=== PATIENT | female | born 1995 | race Caucasian/White ===

== ENCOUNTER 2024-12-23 10:09 | Outpatient (CLI) | payer BC, MEDICAID, SELFPAY ==
--- NOTE | ~2024-12-23 | MR_ITS ---
EXAMINATION: MR knee LT wo con DATE: 12/23/2024 10:49 INDICATION: Left knee medial collateral ligament injury TECHNIQUE: Magnetic resonance imaging (MRI) of the left knee was performed without intravenous contrast. Sequences included coronal PD-weighted FSE, coronal PD-weighted FS FSE, sagittal T2-weighted FSE, sagittal PD-weighted FS FSE and axial PD weighted fat saturated FSE. COMPARISON: None. FINDINGS: Medial compartment: Medial meniscus is normal. Articular cartilage is normal. Lateral compartment: Lateral meniscus is normal. Articular cartilage is normal. Patellofemoral compartment: Deep chondral ulceration with mild subarticular cystlike change at the medial margin of the medial trochlea. Additional partial-thickness chondral fissuring without degenerative subchondral changes at the trochlear groove. Cartilage at the patella lateral trochlea is normal. Ligaments and tendons: Anterior and posterior cruciate ligaments are normal. The fibular collateral ligament complex is normal. Mild increased signal of the proximal medial collateral ligament with prominent surrounding soft tissue edema consistent with moderate grade sprain. The extensor mechanism is normal. The visualized medial and lateral hamstring tendons as well as the iliotibial band are normal. Fluid: Small left knee joint effusion at the suprapatellar pouch. No loose osteochondral bodies identified. Osseous/other: Small region of mild marrow edema along the lateral rim of the posterior weightbearing lateral femoral condyle without evident overlying chondromalacia or associated fracture line suggesting possible bone contusion such as in the setting of a valgus injury of the knee in flexion as could occur in the setting of a medial collateral ligament sprain. No fracture or pathologic marrow replacing process. IMPRESSION: 1. Findings suggestive of a valgus injury to the left knee including moderate grade sprain/partial tear of the proximal medial collateral ligament and likely associated bone contusion at the lateral margin of the posterior weightbearing lateral femoral condyle. 2. 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 3. Small left knee joint effusion. Reviewed, dictated and finalized at location A. IMPRESSION: 1. Findings suggestive of a valgus injury to the left knee including moderate g rade sprain/partial tear of the proximal medial collateral ligament and likely associated bone contusion at the lateral margin of the posterior weightbearing lateral femoral condyle. 2. Mild patellofemoral osteoarthritis with small regions of high-grade chondrom alacia at the medial trochlea. 3. Small left knee joint effusion.
--- OUTSIDE RECORDS SUMMARY | 2024-12-23 10:23 | XMS_ITS | Clinical Summary ---
Author Organization [facility] Address [address] [place] [address] Care Team Providers Care Voice Instructor Name Role Phone Terry Arroyo MD Primary Care Provider [phone] Allergies Active Allergy Reactions Criticality Noted Date Comments Diphenhydramine Hives,Other (see comment) High 04/30/2022 Hives on his wrist hives Medroxyprogesterone Dizziness,Hives Medium 05/08/2017 Medications levothyroxine (SYNTHROID) 100 MCG tablet Take 1 tablet (100 mcg total) by mouth daily. 11/14/2024 Active omeprazole (PRILOSEC) 20 MG capsule Take 1 capsule (20 mg total) by mouth daily. 05/10/2024 Active sertraline (ZOLOFT) 100 MG tablet Take 1 tablet (100 mg total) by mouth daily. 09/16/2024 Active Active Problems No known active problems Encounters Date Type Department Care Team Description 12/19/2024 Telephone [facility] [place] [address] [place] [address] Finn Alonzo MD Orders 12/16/2024 MyChart Message Enc [facility] [address] [place] [address] Finn Alonzo MD MRI 12/14/2024 2:20 PM CDT Office Visit [facility] [address] [place] [address] Finn Alonzo MD New Patient (Left knee ) 12/14/2024 Travel 12/12/2024 Telephone [facility] Orthopedic & Sports Medicine - [place] [address] [place] [address] Finn Alonzo MD Appointment Request 11/01/2024 Get Together Message Enc [facility] [place] [address] [employer], [facility] Provider Name Change from Last 3 Months Family History Medical History Relation Comments Cancer Maternal Grandfather Heart Disease Paternal Grandfather Relation Status Comments Maternal Grandfather Alive Paternal Grandfather Alive Social History Tobacco Use Types Packs/Day Years Used Date Smoking Tobacco: Former Cigarettes 0.3 1 Q uit: 03/23/2016 Smokeless Tobacco: Never Alcohol Use Standard Drinks/Week Comments Yes 0 (1 standard drink = 0.6 oz pur e alcohol) Socially PHQ-2 Answer Date Recorded Patient Health Questionnaire-2 Score 0 12/14/2024 Comments Unknown Sex and Gender Information Value Date Recorded Sex Assigned at Not on file Legal Sex Female 7:25 PM CDT Gender Identity Not on file Sexual Orientation Not on file Last Filed Vital Signs Vital Sign Reading Time Taken Comments Blood Pressure 107/74 12/14/2024 2:43 PM CDT Pulse 75 12/14/2024 2:43 PM CDT Temperature 36.9 C (98.4 F) 12/14/2024 2:21 PM CDT Respiratory Rate - - Oxygen Saturation - - Inhaled Oxygen Concentration - - Weight 111.1 kg (245 lb) 12/14/2024 2:21 PM CDT Height 165.1 cm (5' 5) 12/14/2024 2:21 PM CDT Body Mass Index 40.77 12/14/2024 2:21 PM CDT Plan of Treatment Upcoming Encounters Date Type Department Care Team (Late st Contact Info) Description 07/14/2025 3:00 PM CDT Office Visit [facility] Multispecialty Care - [address] [place] [address] Terry Arroyo MD [address] [facility] [address] [place] [address] Health Maintenance Due Date Last Done Comments Annual Physical 06/27/1999 HPV Vaccines (1 - 3-dose SCDM series) 06/27/2023 COVID-19 Vaccine ( season) 2024 07/19/2020, 06/18/2020 Influenza Adult (#1) 2024 Cervical Cancer Screening Pap Smear (Age 21 to 29) Every 3 Years 10/31/2025 10/31/2022, 08/17/2020 Cervical Cancer Screening 10/31/2025 DTaP, Tdap and Td Vaccines (8 - Td or Tdap) 11/23/2033 11/24/2023, 05/20/2019, 05/20/2019, Additional history exists Hepatitis B Vaccines Completed 02/13/1997, 1996, 1996 Hepatitis C Completed 08/25/2022 PHQ-2 (Physician [place]) Completed 12/14/2024 Meningococcal B Vaccine Aged Out No l onger eligible based on patient's age to complete this topic Meningococcal Vaccine Aged Out No bryce carlie eligible based on patient's age to complete this topic Pneumococcal Vaccine: Pediatrics (0 to 5 Years) and At-Risk Patients (6 to 49 Years) Aged Out No longer eligible based on patient's age to complete this topic RSV Immunizations Under 20 Months Aged Out No longer eligible based on patient's age to complete this topic Insurance [facility] MEDICAID Care Teams Voice Instructor Relationship Specialty Start Date End Date Terry Arroyo MD [address] [facility] [address] [place] [id number] PCP - General INTERNAL MEDICINE 12/14/24
--- OUTSIDE RECORDS SUMMARY | 2024-12-23 10:23 | XMS_ITS | Encounter Summary ---
Author Organization [facility] Address [address] [facility] [place] [place] [address] Phone Care Team Providers Care Social Welfare Research Worker Name Role Phone Kathryn Adhikari APRN, LYNDSAY Primary Care P rovider Dami Yuen MD Unavailable Reason for Visit * Reason Comments Medication Refill Encounter Details Date Type Department Care Team (Late st Contact Info) Description 02/19/2021 Refill [facility]s & [facility]necology [facility] [address] [place] [address] Xu Ramos MD [address] [place] [address] Medication Refill Social History Tobacco Use Types Packs/Day Years Used Date Smoking Tobacco: Former Smokeless Tobacco: Never Alcohol Use Standard Drinks/Week Comments Yes 1 (1 standard drink = 0.6 oz pure alcohol) socially, maybe two drinks one time a week PHQ-2 Answer Date Recorded Total Score - Questions 1-9 0 04/0 04/2020 Education Answer Date Recorded What is the highest level of school you have completed or the highest degree you have received? Some college, no degree 09/13/2020 Sexually Active Control Partners Comments Yes Condom Male Comments No Sex and Gender Information Value Date Recorded Sex Assigned at Not on file Legal Sex Female 9:11 AM COMMUNICATIONS WRITER Gender Identity Not on file Sexual Orientation Not on file COVID-19 Exposure Response Date Recorded In the last month, have you been in contact with someone who was confirmed or suspected to have Coronavirus / COVID-19? No / Unsure 02/07/2021 3:23 PM COMMUNICATIONS WRITER documented as of this encounter Miscellaneous Notes * Telephone Encounter - Debbie Gupta RN - 02/20/2021 11:15 AM CST Medication failed the protocol, provider to review and approve the medication order if appropriate. Requested Prescriptions Pending Prescriptions Disp Refills Vienva 0.1-20 MG-MCG Tablet [Pharmacy Med Name: VIENVA 0.1MG/0.02MG TABS 28S] 28 Tablet 5 Sig: TAKE 1 TABLET BY MOUTH DAILY Not Delegated - Oral Contraceptives Protocol Failed - 02/19/2021 7:04 PM Failed - This refill cannot be delegated Passed - No positive test in the past 12 months or most recent test was negative Passed - Visit with relevant provider in past 12 months or upcoming 90 days Recent Visits Date Type Provider Dept 02/07/21 Office Visit Kathryn Adhikari APRN, LYNDSAY [facility] 09/14/20 Office Visit Kathryn Adhikari APRN, AWNING FINISHER [facility] [place] [facility] 08/17/20 Office Visit Xu Ramos MD [facility] Windshield Wiper Repairer [place] 06/22/20 Office Visit Kathryn Adhikari APRN, AWNING FINISHER [facility] [place] [facility] Showing recent visits within past 365 days and meeting all other requirements Future Appointments No visits were found meeting these conditions. Showing future appointments within next 90 days and meeting all other requirements Passed - No active on record Passed - Up to date with pap smear Health Maintenance UNICATIONS WRITER documented in this encounter Plan of Treatment Upcoming Encounters Date Type Department Care Team (Late st Contact Info) Description 03/31/2025 2:15 PM COMMUNICATIONS WRITER Office Visit [facility] - Endocrinology - [place] [address] [place] [address] Dami Yuen MD [address] [address] documented as of this encounter Visit Diagnoses Not on filedocumented in this encounter Additional Health Concerns Infection Onset Date Last Indicated Resolved Time COVID - 19 02/21/2021 03/25/2021 04/14/2021 12:1 6 AM COMMUNICATIONS WRITER Assessment Noted Time PHQ-9 Depression Total Score: 0 06/23/19 21 8:00 AM CDT documented as of this encounter Care Teams Social Welfare Research Worker Relationship Specialty Start Date End Date Kathryn Adhikari APRN, AWNING FINISHER [address] [place] [address] PCP - General Advanced Practice Nurse 01/01/18 Dami Yuen MD [address] [place] [address] [place] [address] Consulting Physician Endocrinology 12/15/24 documented as of this encounter
--- OUTSIDE RECORDS SUMMARY | 2024-12-23 10:23 | XMS_ITS | Encounter Summary ---
Author Organization [facility] Address [facility] [place] [address] Care Team Providers Care Auto Tester Name Role Phone Shashi Peng MD Primary Care Provider [phone] Terry Arroyo MD Primary Care Provider [phone] Encounter Details Date Type Department Care Team (Late Contact Info) Description 11/01/2024 Visual Threat Message Qra[facility] [place] [address] [facility] Provider Name Change Social History Tobacco Use Types Packs/Day Years Used Date Smoking Tobacco: Never Assessed Comments Unknown Sex and Gender Information Value Date Recorded Sex Assigned at Not on file Legal Sex Female 7:25 PM CDT Gender Identity Not on file Sexual Orientation Not on file documented as of this encounter Plan of Treatment Upcoming Encounters Date Type Department Care Team (Late Contact Info) Description 07/14/2025 3:00 PM CDT Office Visit [facility] Multispecialty Care - [address] [place] [address] Terry Arroyo MD [address] [place] [address] [address] [place], [place] [id number] documented as of this encounter Visit Diagnoses Not on filedocumented in this encounter Care Teams Auto Tester Relationship Specialty Start Date End Date Shashi Peng MD [address] [place] [address] DR JESSICA [address] [place] [address] PCP - General 11/06/15 12/13/24 Terry Arroyo MD [address] [facility] [address] [place] [address] PCP - General INTERNAL MEDICINE 12/14/24 documented as of this encounter
--- OUTSIDE RECORDS SUMMARY | 2024-12-23 10:23 | XMS_ITS | Encounter Summary ---
Author Organization [facility] Address [address] [facility] [place] [address] Phone Care Team Providers Care Land Acquisition Analyst Name Role Phone Kathryn Adhikari APRN, CNP Primary Care P rovider Dami Yuen MD Unavailable Reason for Visit * Reason Comments Medication Refill Encounter Details Date Type Department Care Team (Late st Contact Info) Description 09/30/2021 Refill [facility] - Primary Care - [place] [address] [place] [address] Kathryn Adhikari APRN, CNP [address] [place] [address] Medication Refill Social History Tobacco Use Types [...] on file Legal Sex Female 9:11 AM SLUDGE FILTRATION OPERATOR Gender Identity Not on file Sexual Orientation Not on file documented as of this encounter Miscellaneous Notes * Telephone Encounter - Lana Bravo RN - 09/30/2021 12:29 PM CDT Duplicate-ordered today. documented in this encounter Plan of Treatment Upcoming Encounters Date Type Department Care Team (Late st Contact Info) Description 03/31/2025 2:15 PM SLUDGE FILTRATION OPERATOR Office Visit [facility] - Endocrinology - [place] [address] [place] [address] Dami Yuen MD [address] [address] documented as of this encounter Visit Diagnoses Diagnosis Class 2 severe obesity due to excess calories with serious comorbidity and body mass index (BMI) of 37.0 to 37.9 in adult documented in this encounter Additional Health Concerns Assessment Noted Time PHQ-9 Depression Total Score: 0 06/23/19 21 8:00 AM CDT documented as of this encounter Care Teams Land Acquisition Analyst Relationship Specialty Start Date End Date Kathryn Adhikari APRN, CNP [address] [place] [address] PCP - General Advanced Practice Nurse 01/01/18 Dami Yuen MD [address] [address] Consulting Physician Endocrinology 12/15/24 documented as of this encounter
--- OUTSIDE RECORDS SUMMARY | 2024-12-23 10:24 | XMS_ITS | Encounter Summary ---
Author Organization [facility] Address [address] [facility] [place] [address] Phone Care Team Providers Care Typewriter Assembler Name Role Phone Kathryn Adhikari APRN, CNP Primary Care P rovider Dami Yuen MD Unavailable Reason for Visit * Reason Comments Medication Refill Encounter Details Date Type Department Care Team (Late st Contact Info) Description 03/04/2023 Refill [facility] - Primary Care - [place] [address] [place] [address] Kathryn Adhikari APRN, CNP [address] [place] [address] Medication Refill Social History Tobacco [...] on file Legal Sex Female 9:11 AM MANAGER SOFTWARE Gender Identity Not on file Sexual Orientation Not on file documented as of this encounter Miscellaneous Notes * Telephone Encounter - Comfort Sandoval RN - 03/05/2023 9:18 AM MANAGER SOFTWARE Medication failed the protocol, provider to review and approve the medication order if appropriate. Requested Prescriptions Pending Prescriptions Disp Refills Mounjaro 10 MG/0.5ML Solution Pen-injector [Pharmacy Med Name: Mounjaro 10 MG/0.5ML Subcutaneous Solution Pen-injector] 4 mL 0 Sig: INJECT 10 MG SUBCUTANEOUSLY ONCE A WEEK GLP-1 Agonists Protocol Failed - 03/04/2023 7:41 PM Failed - HgA1C result on record in past 6 months No results found for: HGBA1C Passed - Lipid panel result on file in past 12 months LDL Date Value Ref Range Status 08/25/2022 80 5 - 130 mg/dL Final HDL CHOLESTEROL Date Value Ref Range Status 08/25/2022 54.4 >40 mg/dL Final CHOLESTEROL Date Value Ref Range Status 08/25/2022 194 <=200 mg/dL Final TRIGLYCERIDES Date Value Ref Range Status 08/25/2022 298 (H) <150 mg/dL Final VLDL Date Value Ref Range Status 08/25/2022 60 (H) 5 - 55 mg/dL Final CHOL/HDL RATIO Date Value Ref Range Status 08/25/2022 3.6 0.0 - 4.4 Final NON-HDL CHOLESTEROL Date Value Ref Range Status 08/25/2022 139.6 (H) <130 mg/dL Final Passed - Visit with relevant provider in past 6 months or upcoming 90 days Recent Visits Date Type Provider Dept 03/02/23 Office Visit Kathryn Adhikari APRN, C.O.D. AUDIT CLERK [facility] 01/09/23 Office Visit Brenden Morley PAC [facility] 10/13/22 Office Visit Kathryn Adhikari APRN, C.O.D. AUDIT CLERK [facility] Showing recent visits within past 182 days and meeting all other requirements Future Appointments No visits were found meeting these conditions. Showing future appointments within next 90 days and meeting all other requirements Passed - GFR on record in past 6 months GFR, EST. NONAFRICAN Date Value Ref Range Status 03/02/2023 >60 >=60 Final GER SOFTWARE documented in this encounter Plan of Treatment Upcoming Encounters Date Type Department Care Team (Late st Contact Info) Description 03/31/2025 2:15 PM MANAGER SOFTWARE [facility] - End[facility]in[facility] [address] [place] [address] Dami Yuen MD [address] [address] documented as of this encounter Visit Diagnoses Diagnosis PCO (polycystic ovaries) Polycystic ovaries Class 3 severe obesity due to excess calories with serious comorbidity and body mass index (BMI) of 40.0 to 44.9 in adult Endometriosis Endometriosis, site unspecified documented in this encounter Additional Health Concerns Assessment Noted Time PHQ-9 Depression Total Score: 0 06/23/19 21 8:00 AM CDT documented as of this encounter Care Teams Typewriter Assembler Relationship Specialty Start Date End Date Kathryn Adhikari APRN, C.O.D. AUDIT CLERK [address] [place] [address] PCP - General Advanced Practice Nurse 01/01/18 Dami Yuen MD [address] [address] Consulting Physician Endocrinology 12/15/24 documented as of this encounter
--- OUTSIDE RECORDS SUMMARY | 2024-12-23 10:24 | XMS_ITS | Encounter Summary ---
Author Organization [facility] Address [address] [place] [address] Phone Care Team Providers Care Production Planner Name Role Phone Kathryn Adhikari APRN, LYNDSAY Primary Care P rovider Dami Yuen MD Unavailable Reason for Visit * Reason Comments Medication Refill Encounter Details Date Type Department Care Team (Late st Contact Info) Description 01/02/2023 Refill [facility] - Primary Care - [place] [address] [place] [address] Brenden Morley PAC [address] [place] [address] Medication Refill Social History Tobacco Use Types [...] on file Legal Sex Female 9:11 AM APPLICATION INTEGRATION ARCHITECT Gender Identity Not on file Sexual Orientation Not on file documented as of this encounter Miscellaneous Notes * Telephone Encounter - Jaime, Comfort L, RN - 01/02/2023 1:43 PM CDT Medication failed the protocol, provider to review and approve the medication order if appropriate. Requested Prescriptions Pending Prescriptions Disp Refills Mounjaro 7.5 MG/0.5ML Solution Pen-injector [Pharmacy Med Name: Mounjaro 7.5 MG/0.5ML Subcutaneous Solution Pen-injector] 4 mL 0 Sig: INJECT 1 SYRINGE SUBCUTANEOUSLY ONCE A WEEK GLP-1 Agonists Protocol Failed - 01/02/2023 1:41 PM Failed - HgA1C result on record [...] days Recent Visits Date Type Provider Dept 10/13/22 Office Visit Kathryn Adhikari APRN, CLINICAL STUDIES SPECIALIST [facility] 08/15/22 Office Visit Kathryn Adhikari APRN, CLINICAL STUDIES SPECIALIST [facility] Showing recent visits within past 182 days and meeting all other requirements Future Appointments No visits were found meeting these conditions. Showing future appointments within next 90 days and meeting all other requirements Passed - GFR on record in past 6 months GFR, EST. NONAFRICAN Date Value Ref Range Status 08/25/2022 >60 >=60 Final documented in this encounter Plan of Treatment Upcoming Encounters Date Type Department Care Team (Late st Contact Info) Description 03/31/2025 2:15 PM APPLICATION INTEGRATION ARCHITECT Office Visit [facility] - Endocrinology - [place] [address] [place] [address] Dami Yuen MD [address] [phone] documented as of this encounter Visit Diagnoses [...] documented as of this encounter Care Teams Production Planner Relationship Specialty Start Date End Date Kathryn Adhikari APRN, CLINICAL STUDIES SPECIALIST [address] [place] [address] PCP - General Advanced Practice Nurse 01/01/18 Dami Yuen MD [address] [address] Consulting Physician Endocrinology 12/15/24 documented as of this encounter
--- OUTSIDE RECORDS SUMMARY | 2024-12-23 10:24 | XMS_ITS | Clinical Summary ---
Author Organization [facility] Building B Address [address] [place] [address] Care Team Providers Care Printing Table Hand Name Role Phone Kathryn Adhikari NP Primary Care Provide r Allergies Active Allergy Reactions Criticality Noted Date Comments Diphenhydramine Hives Medium 05/01/2022 Hives on his wrist Medroxyprogesterone Hives Medium 05/08/2017 Medications omeprazole (PriLOSEC) 20 mg capsule Take 1 capsule (20 mg total) by mouth daily 3 Active ondansetron (ZOFRAN) 4 mg tablet Take 1 tablet (4 mg total) by mouth every 8 (eight) hours as needed As needed 3 Active levothyroxine (SYNTHROID) 100 mcg recon soln 0 Active tirzepatide (MOUNJARO) 15 mg/0.5 mL pen injector 4 Active letrozole (FEMARA) 2.5 mg tablet Take one tablet PO D3-7 of menstrual cycle. 5 tablet 6 4 Active sertraline (ZOLOFT) 100 mg tablet Take 1 tablet (100 mg total) by mouth daily 5 Active Active Problems Problem Noted Date Diagnosed Date Well woman exam 04/11/2021 Overview (04/11/2021): Lab: Pap:h/o abnl told secondary to bv Due in July 2021 With pcp Jaimie: Colonoscopy: BMD: Gardasil:05/23 Assessment & Plan (04/11/2021 5:27 PM RING SPINNER): Due for pap in July PCOS (polycystic ovarian syndrome) 04/11/2021 Assessment & Plan (07/19/2021 9:40 AM CDT): She is happy with these pills for now. Will continue on To increase fiber to see if it helps with cramping via helping with the constipation. rto 12m for wwe or prn To continue on the spironolactone Assessment & Plan (04/11/2021 5:30 PM RING SPINNER): Will change to ocp with higher estrogen to increase the amount of SHBG. Use reviewed. Hopefully it will regulate the periods too and help with the pain. RTO 3m for f/u She will follow with her pcp for weight loss which is the first treatment for PCOS Hirsutism 04/11/2021 Assessment & Plan (07/11/2021 4:08 PM CDT): To continue on spironolactone. Assessment & Plan (04/11/2021 5:28 PM RING SPINNER): Will start on spironolactone. Use reviewed. Discussed it may take up to 6m before she notices any difference Adjustment disorder with mixed anxiety and depre ssed mood 08/07/2017 Amenorrhea 07/28/2016 Encounters Date Type Department Care Team Description 11/28/2024 2:40 PM CDT Ancillary Procedure [facility] Imaging at [address] [address] Injury of nail bed of right thumb, initial encounter 11/28/2024 2:30 PM CDT Office Visit [facility] Convenient Care at [address] [address] Melissa Hidalgo NP Injury of nail bed of right thumb, initial encounter (Primary Dx) 11/28/2024 Results Follow-Up [facility] Convenient Care at [address] [address] Melissa Hidalgo, MAX XR Finger Thumb Right Minimum 2 Views from Last 3 Months Surgical History Surgery Date Site/Laterality Comments BUNIONECTOMY Medical History Medical History Date Comments Polycystic ovary syndrome Thyroid disease Family History Medical History Relation Name Comments Esophageal cancer Maternal Grandfather Scleroderma Maternal Grandmother Thyroid disease Mother Colon cancer Paternal Grandfather Heart disease Paternal Grandfather Breast cancer Neg Hx Cancer Neg Hx 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 [facility]- breast. 04/08/21cmt Ovarian cancer Neg Hx Uterine cancer Neg Hx Relation Name Status Comments Maternal Grandfather Maternal Grandmother Mother Paternal Grandfather Social History Tobacco Use Types Packs/Day Years Used Date Smoking Tobacco: Never Smokeless Tobacco: Never AUDIT-C Answer Date Recorded Q1: How often do you have a drink containing alc ohol? 2-3 times a week 04/08/2021 Average Number of Drinks Not on file 022 Frequency of Binge Drinking Not on file 03/23 PHQ-2 Answer Date Recorded PHQ-2 Total Score (If total score is 3 or more points, staff should administer the PHQ-9) 1 04/08/2021 Comments No Sex and Gender Information Value Date Recorded Sex Assigned at Not on file Legal Sex Female 6:22 PM RING SPINNER Gender Identity Not on file Sexual Orientation Not on file Obstetrics History Para Term AB IAB SAB Ectopic Multiple Livin g Live Births 0 0 0 0 0 0 0 0 0 0 0 Last Filed Vital Signs Vital Sign Reading Time Taken Comments Blood Pressure 118/74 11/28/2024 2:27 PM CDT Pulse 86 11/28/2024 2:27 PM CDT Temperature 36.2 C (97.1 F) 11/28/2024 2:27 PM CDT Respiratory Rate 24 11/28/2024 2:27 PM CDT Oxygen Saturation 96% 11/28/2024 2:27 PM CDT Inhaled Oxygen Concentration - - Weight 108.9 kg (240 lb) 11/28/2024 2:27 PM CDT Height 165.1 cm (5' 5) 11/28/2024 2:27 PM CDT Body Mass Index 39.94 11/28/2024 2:27 PM CDT Plan of Treatment Health Maintenance Due Date Last Done Comments Hepatitis C Screening 1996 Varicella Vaccines (1 of 2 - 13+ 2-dose series) 2009 Pneumococcal vaccine <65 (1 of 2 - PCV) 06/27/2015 Zoster Vaccine (1 of 2) 06/27/2015 Covid-19 Vaccine (3 - Modern a risk series) 08/16/2020 07/19/2020, 06/18/2020 Depression Screening 04/08/2022 04/08/2021 HPV Vaccines (1 - 3-dose SCD M series) 06/27/2023 Cervical Cancer Screening 11/01/2023 10/31/2022, Regular Well Visit/Exam 18-64 11/01/2023 10/31/2022 Influenza Vaccine (#1) 2024 DTaP/Tdap/Td Vaccine (8 - Td or Tdap) 11/23/2033 11/24/2023, 05/20/2019, 05/20/2019, Additional history exists Hepatitis B Screening Completed 02/13/1997 , 1996, 1996 Procedures Procedure Name Priority Date/Time Associated Diagnosis Comments XR FINGER THUMB RIGHT Schedule YOJANA, Read YOJANA (Appt Today, Awaiting Results) 11/28/2024 2:50 PM CDT Injury of nail bed of right thumb, initial encounter PAP WITH REFLEX TO HIGH RISK HPV Routine 10/31/2022 10:05 AM CDT Well woman exam from Last 3 Months or Most Recently Relevant to Health Maintenance Results * XR Finger Thumb Right Minimum 2 Views (11/28/2024 2:50 PM CDT) Anatomical Region Laterality Modality Upper Extremities, Hand, Fingers Right Digital Radiography 11/28/2024 3:53 PM CDT Narrative 11/28/2024 3:54 PM CDT EXAM DESCRIPTION: XR FINGER THUMB RIGHT MINIMUM 2 VIEWS REASON FOR STUDY: Hand trauma, thumb injury suspected, slammed in car door Pt complains of thumb pain after slamming it in a car door yesterday. No prior fx or surgery TECHNIQUE: 3 radiographic view(s) of the right thumb . COMPARISON: None FINDINGS: BONES/JOINTS: There is no acute fracture, malalignment or osseous abnormality. The joint spaces are normal. SOFT TISSUES: Within normal limits. IMPRESSION: No acute osseous abnormality. THIS IS AN ELECTRONICALLY VERIFIED FINAL REPORT 11/28/2024 3:54 PM - Electronically signed by Radha Gomes M.D. TW T: Report ID: [id number] Reading Location: [id number] Procedure Note Radha Gomes MD - 11/28/2024 EXAM DESCRIPTION: XR FINGER THUMB RIGHT MINIMUM 2 VIEWS REASON FOR STUDY: Hand trauma, thumb injury suspected, slammed in car door Pt complains of thumb pain after slamming it in a car door yesterday. Noprior fx or surgery TECHNIQUE: 3 radiographic view(s) of the right thumb . COMPARISON: None FINDINGS: BONES/JOINTS: There is no acute fracture, malalignment orosseous abnormality. The joint spaces are normal. SOFT TISSUES: Within normal limits. IMPRESSION: No acute osseous abnormality. THIS IS AN ELECTRONICALLY VERIFIED FINAL REPORT 11/28/2024 3:54 PM - Electronically signed by Radha Gomes M.D. TW T: Report ID: [id number] Reading Location: [id number] Melissa Hidalgo NP IMG XR PROCEDURES Final Re sult * Pap with reflex to High Risk HPV and Genotyping (Cytology Component) (10/31/2022 10:05 AM CDT) Thin prep (Pap test) 10/31/2022 10:05 AM CDT 11/03/2022 10:05 AM CDT Narrative PATHOLOGY [facility] - 11/05/2022 9:45 AM CDT [facility] Department of Pathology [address] [place] [id number] Final Report Note to Patients: This report may contain a detailed description of human tissue sent by a health care provider to the laboratory for pathologic evaluation. The content of this report is essential for diagnosis and may provide important critical findings. This information may be unfamiliar to patients to review without a medical professional present. It is advised that the patient review this report in the presence of a health care provider who can answer questions and explain the details. Patient Name: BETTY WOODY Address: [address] [place] [id number] Gender: F : 1995 (Age: 27) Service: Location: [facility] : [id number] [facility] #: [id number] Patient Type: E SPECIMEN Taken: 10/31/2022 Received: 11/03/2022 Accessioned:: 11/04/2022 Reported: 11/05/2022 Physician(s): Celia Yan M.D. [facility] Diagnosis: SOURCE OF SPECIMEN Imaged Thinprep Pap Test w/ Reflex HPV - Manufactured Buildings Repairer Cytologic Material: STATEMENT OF ADEQUACY - Satisfactory for evaluation; endocervical/transformation zone component present GENERAL CATEGORIZATION: - Negative for intraepithelial lesion or malignancy FARRAH Ac(ASCP) Report Electronically Reviewed and Signed Out By FARRAH Ac(ASCP) 11/05/2022 09:45:04Specimen(s) Received: A: Imaged Thinprep Pap Test w/ Reflex HPV - Manufactured Buildings Repairer Cytologic Material Clinical History: Last Menstrual Period: 10/21/2022 The Pap test is a screening test used to aid in the detection of cervical cancer and its precursors. It should not be the sole means by which malignant and premalignant lesions are diagnosed. Both false negative and false positive results may occur. It also has poor sensitivity for the detection of endometrial lesions and should not be used to evaluate suspected endometrial abnormalities. For these reasons it is most important to obtain Pap tests at regular intervals. The performance characteristics of some immunohistochemical stains, fluorescence in-situ hybridization tests and immunophenotyping by flow cytometry cited in this report (if any) were determined by the Surgical Pathology Department at [facility] as part of an ongoing quality rn program and in compliance with federally mandated regulations drawn from the Clinical Laboratory Improvement Act of 1988 (CLIA '88). Some of these tests rely on the use of analyte specific reagents and are subject to specific labeling requirements by the US Food and Drug Administration. Such diagnostic tests may only be performed in a facility that is certified by the Department of Health and Human Services as a high complexity laboratory under CLIA '88. The FDA has determined that such clearance or approval is not necessary. This test is used for clinical purposes. It should not be regarded as investigational or for research. Nevertheless, federal rules concerning the medical use of analyte specific reagents require that the following disclaimer be attached to the report: This test was developed and its performance characteristics determined by the Surgical Pathology Department [facility]. It has not been cleared or approved by the U. S. Food and Drug Administration. Celia Yan MD LAB CYTOLOGY ORDERABLES F inal Result PATHOLOGY [facility] from Last 3 Months or Most Recently Relevant to Health Maintenance [place] Care Teams Printing Table Hand Relationship Specialty Start Date End Date Kathryn Adhikari NP [address] [place] [address] PCP - General Emergency Medicine 10/31/22
--- OUTSIDE RECORDS SUMMARY | 2024-12-23 10:24 | XMS_ITS | Encounter Summary ---
Author Organization [facility] Address [address] [facility] 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 No / Unsure 08/25/2022 7:52 AM CDT documented as of this encounter Miscellaneous Notes * Telephone Encounter - Comfort Sandoval RN - 09/12/2022 9:07 AM CDT Medication failed the protocol, provider to review and approve the medication order if appropriate. Requested Prescriptions Pending Prescriptions Disp Refills Mounjaro 2.5 MG/0.5ML Solution Pen-injector [Pharmacy Med Name: MOUNJARO 2.5MG/0.5ML PF PEN INJ] 2 mL 3 Sig: ADMINISTER 2.5MG(0.5 ML) UNDER THE SKIN 1 TIME A WEEK GLP-1 Agonists Protocol Failed - 09/11/2022 5:50 PM Failed - HgA1C result on record [...] days Recent Visits Date Type Provider Dept 08/15/22 Office Visit Kathryn Adhikari APRN, MANUFACTURING MILLWRIGHT [facility] 06/02/22 Office Visit Brenden Morley PAC [facility] Showing recent visits within past 182 days [...] st Contact Info) Description 03/31/2025 2:15 PM AQUATIC LABORER Office Visit [facility] - Endocrinology - [place] [address] [place] [address] Dami Yuen MD [address] [address] documented as of this encounter Visit Diagnoses [...] documented as of this encounter Care Teams Tank Car Repairer Relationship Specialty Start Date End Date Kathryn Adhikari APRN, CNP [address] [place] [address] PCP - General Advanced Practice Nurse 01/01/18 Dami Yuen MD [address] [address] Consulting Physician Endocrinology 12/15/24 documented as of this encounter
--- OUTSIDE RECORDS SUMMARY | 2024-12-23 10:24 | XMS_ITS | Clinical Summary ---
Author Organization [facility] Address [address] [place] [address] Care Team Providers Care Hand Spring Former Name Role Phone Kathryn Adhikari SUPPORT MERCHANDISER-MARKET DEVELOPMENT MANAGER Primary Care Pr ovider Source Comments [facility],non-owned Affiliates and Associated Physician Practices is amultiple site organization consisting of ambulatory clinics and hospital sitesin [place], [place], [place] and [place]. This disclosure is being madepursuant to the Care Everywhere program and may not contain all information available regarding this patient. Last updated 17.[facility] Allergies Active Allergy Reactions Criticality Noted Date Comments Diphenhydramine Other 05/01/2022 Hives on his wrist Medroxyprogesterone Urticaria Medium 05/08/2017 Medications * Be aware that medications may not be up to date on this document. Alwaysverify current medications with the patient. levothyroxine (Synthroid) 100 MCG tablet Take 1 (one) tablet by mouth once daily 03/17/2021 Active drospirenone-et hinyl estradiol (Jackie) 3-0.02 MG tablet Take 1 (one) tablet by mouth once daily Take 1 tablet daily, Skip placebo week, and start taking next pack 28 tablet 11 02/07/2022 Active ibuprofen (Motrin) 600 MG tablet Take 1 (one) tablet by mouth every 6 hours as needed for Pain 40 tablet 1 05/01/2022 Active docusate sodium (Colace) 100 MG capsule Take 1 (one) capsule by mouth 2 times daily 60 capsule 1 05/01/2022 Active oxyCODONE, immediate release, (Roxicodone) 5 MG tabletIndicatio ns:Preop testing Take 1 (one) tablet by mouth every 6 hours as needed for Pain 12 tablet 05/01/2022 Active sulfamethoxazol e-trimethoprim (Bactrim DS; Septra DS) 800-160 MG tablet Take 1 (one) tablet by mouth 2 times daily 14 tablet 05/12/2022 Active Active Problems No known active problems Immunizations Immunization Administration Dates Next Due DTaP VACCINE IM (6wk-6yrs) 04/11/1998,02/13/1997 ,1996,1996 HEP B VACCINE, PED/ADOL 02/13/1997,1996, HIB VACCINE 04/11/1998,05/11/1997,1996 ,1996 MMR 04/11/1998 POLIO OPV 04/11/1998,1996,1996 TDAP (7yrs+) 05/20/2019 Family History Medical History Relation Name Comments Thyroid Disease Mother Relation Name Status Comments Mother Social History Tobacco Use Types Packs/Day Years Used Date Smoking Tobacco: Former Cigarettes 0.3 1 2 015 - 2016 Smokeless Tobacco: Never Tobacco Cessation:Counseling Given: Not Answered Alcohol Use Standard Drinks/Week Comments Yes 3 (1 standard drink = 0.6 oz pur e alcohol) Socially AUDIT-C Answer Date Recorded Q1: How often do you have a drink containing alcohol? Never 05/01/2022 Q2: How many drinks containi ng alcohol do you have on a typical day when you are drinking? Patient does not drink Q3: How often do you have si x or more drinks on one occasion? Never 05/01/2022 Comments No Sex and Gender Information Value Date Recorded Sex Assigned at Not on file Legal Sex Female 7:54 AM CDT Gender Identity Not on file Sexual Orientation Not on file Last Filed Vital Signs Vital Sign Reading Time Taken Comments Blood Pressure 128/80 05/12/2022 8:26 AM NUCLEAR WEAPONS MECHANICAL SPECIALIST Pulse 91 05/01/2022 1:06 PM NUCLEAR WEAPONS MECHANICAL SPECIALIST Temperature 36.8 C (98.2 F) 05/01/2022 11:35 AM NUCLEAR WEAPONS MECHANICAL SPECIALIST Respiratory Rate 16 05/01/2022 1:06 PM NUCLEAR WEAPONS MECHANICAL SPECIALIST Oxygen Saturation 96% 05/01/2022 1:06 PM NUCLEAR WEAPONS MECHANICAL SPECIALIST Inhaled Oxygen Concentration - - Weight 107 kg (236 lb) 05/12/2022 8:26 AM NUCLEAR WEAPONS MECHANICAL SPECIALIST Height 165.1 cm (5' 5) 05/12/2022 8:26 AM NUCLEAR WEAPONS MECHANICAL SPECIALIST Body Mass Index 39.27 05/12/2022 8:26 AM NUCLEAR WEAPONS MECHANICAL SPECIALIST Plan of Treatment Health Maintenance Due Date Last Done Comments HIV SCREENING 06/27/2011 HEPATITIS C SCREENING 06/22/2014 PAP SMEAR 2017 HPV VACCINE (1 - 3-dose SCDM series) 06/27/2023 DEPRESSION SCREENING 03/23/2024 COVID-19 VACCINE (3 - season) 2024 07/19/2020, 06/18/2020 INFLUENZA VACCINE (#1) 2024 DTAP/TDAP/TD VACCINES (6 - Td or Tdap) 05/20/2029 05/20/2019, 04/11/1998, 02/13/1997, Additional history exists ZOSTER VACCINE (1 of 2) 2046 HEPATITIS B VACCINE Completed 02/13/1997, 1996, 1996 HIB VACCINE Completed 04/11/1998, 04/23, 1996, Additional history exists MENINGOCOCCAL (Group B) VACCINE SHARED DECISION-MAKING Aged Out No longer eligible based on patient's age to complete this topic MENINGOCOCCAL GROUPS A/C/Y/W VACCINE Aged Out No longer eligible based on patient's age to complete this topic PNEUMOCOCCAL VACCINE Aged Out No long er eligible based on patient's age to complete this topic Insurance ANTHEM ANTHEM MEDICAID - OUT OF STATE AN[place] MEDICAID - [place] Care Teams Hand Spring Former Relationship Specialty Start Date End Date Kathryn Adhikari, SUPPORT MERCHANDISER-MARKET DEVELOPMENT MANAGER [address] [place] [address] PCP - General 02/10/22
--- OUTSIDE RECORDS SUMMARY | 2024-12-23 10:24 | XMS_ITS | Encounter Summary ---
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
--- OUTSIDE RECORDS SUMMARY | 2024-12-23 10:24 | XMS_ITS | Encounter Summary ---
Author Organization [facility] Address [address] [facility] [place] [address] Phone Care Team Providers Care Packaging Sales Name Role Phone Kathryn Adhikari APRN, CNP Primary Care P rovider Dami Yuen MD Unavailable Reason for Referral * Medical Care (Routine) - Authorized Specialty Diagnoses / Procedures Referred By Reginald guillaume Referred To Contact Diagnoses Acute pain of left knee Procedures OFFICE/OP NEW LVL 3 LOW MDM/30-44 MIN OFFICE/OP EST LVL 3 LOW MDM/20-29 MIN Kathryn Adhikari APRN, CNP [address] [place] [address] Phone: tel: fax: EXTERNAL LOCATION OUTSIDE OF [place] Referral ID Status Reason Start Date Expiration Date V isits Requested Visits Authorized [id number] Authorized 12/12/2024 1 11 Scheduling Instructions Betty is being referred to Dr. Finn Alonzo with [facility] in [facility] or other specialist in patient's insurance network for left knee pain. See below for Betty's current medications, allergies and problem list. CURRENT MEDS: Current Outpatient Medications: levothyroxine (SYNTHROID) 100 MCG Tablet, TAKE 1 TABLET BY MOUTH DAILY, Disp: 90 Tablet, Rfl: 1 omeprazole (PriLOSEC) 20 MG CAPSULE DELAYED RELEASE, Take 1 Capsule by mouth daily., Disp: 90 Capsule, Rfl: 3 sertraline (ZOLOFT) 100 MG Tablet, TAKE 1 TABLET BY MOUTH DAILY, Disp: 90 Tablet, Rfl: 1 Tirzepatide-Weight Management (Zepbound) 2.5 MG/0.5ML Solution, 2.5 mg by Subcutaneous route once a week., Disp: 2 mL, Rfl: 0 No current facility-administered medications for this visit. ALLERGIES: -- Diphenhydramine -- Hives -- hives -- Depo-Provera [Medroxyprogesterone] -- Hives PROBLEM LIST: Patient Active Problem List: PCOS (polycystic ovarian syndrome) Adjustment disorder with mixed anxiety and depressed mood Reason for Visit * Reason Onset Date Comments Referral 12/12/2024 Encounter Details Date Type Department Care Team (Late st Contact Info) Description 12/12/[address] [facility] - Primary Care - [place] [address] [place] [address] Kathryn Adhikari APRN, CNP [address] [place] [address] Referral Social History Tobacco Use Types Packs/Day Years Used Date Smoking Tobacco: Former Smokeless Tobacco: Never Alcohol Use Standard Drinks/Week Comments Yes 1 (1 standard drink = 0.6 oz pure alcohol) socially, maybe two drinks one time a week PHQ-2 Answer Date Recorded Total Score - Questions 1-9 14 09/2024 Education Answer Date Recorded What is the highest level of school you have completed or the highest degree you have received? 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 Background: Referral requested for orthopedic surgery. Was seen in emergency department on 12/10, was referred to an orthopedic surgeon by the emergency department, and noticed that this provider did not have good reviews. Per AVS, follow-up with PCP office as needed. Action: Name and location of patient's preferred specialty provider: Finn Alonzo with [facility] in [facility]. Patient been seen by this speciality in the past? Yes - for a bunionectomy. Recommendation: Referral request routed to provider for review. Order pended for provider consideration - please review and sign if appropriate. Thanks! Patient declined to take referral center contact information. documented in this encounter Plan of Treatment Upcoming Encounters Date Type Department Care Team (Late st Contact Info) Description 03/31/2025 2:15 PM SIX HORSE HITCH DRIVER Office Visit [facility] - Endocrinology - [place] [address] [place] [address] Dami Yuen MD [address] [address] Scheduled Referrals Name Type Priority Associated Diagnoses Order Schedule EXTERNAL ORTHOPEDIC SURGERY REFERRAL Outpatient Referral Routine Acute pain of left knee Expected: 12/12/2024, Expires: 12/12/2025 documented as of this encounter Visit Diagnoses Diagnosis Acute pain of left knee- Primary documented in this encounter Additional Health Concerns Assessment Noted Time PHQ-9 Depression Total Score: 14 025 3:29 PM SIX HORSE HITCH DRIVER documented as of this encounter Care Teams Packaging Sales Relationship Specialty Start Date End Date Kathryn Adhikari APRN, DRAPERY AND UPHOLSTERY MEASURER [address] [place] [address] PCP - General Advanced Practice Nurse 01/01/18 Dami Yuen MD [address] [address] Consulting Physician Endocrinology 12/15/24 documented as of this encounter
--- OUTSIDE RECORDS SUMMARY | 2024-12-23 10:24 | XMS_ITS | Encounter Summary ---
Author Organization [facility] Address [address] [place] [address] Care Team Providers Care Component Inspector Name Role Phone Kathryn Adhikari EGG CASER-SENIOR CORPORATE ACCOUNTANT Primary Care Pr ovider Encounter Details Date Type Department Care Team (Late st Contact Info) Description 09/05/2022 Telephone [facility] - Centralized Scheduling [address] [place] [phone] Norma Toussaint MD [address] [address] Social History Tobacco Use Types Packs/Day Years Used Date Smoking Tobacco: Former Cigarettes 0.3 1 2 015 - 2016 Smokeless Tobacco: Never Alcohol Use Standard Drinks/Week Comments Yes 3 [...] Recorded In the last 10 days, have yo u been in contact with someone who was confirmed or suspected to have Coronavirus/COVID-19? No / Unsure 09/05/2022 2:32 PM CDT documented as of this encounter Plan of Treatment Not on file documented as of this encounter Visit Diagnoses Not on filedocumented in this encounter Care Teams Component Inspector Relationship Specialty Start Date End Date Kathryn Adhikari, EGG CASER-SENIOR CORPORATE ACCOUNTANT [address] [place] [address] PCP - General 02/10/22 documented as of this encounter
--- OUTSIDE RECORDS SUMMARY | 2024-12-23 10:24 | XMS_ITS | Clinical Summary ---
Author Organization [facility] Address [address] [place] [address] Phone Care Team Providers Care Awning Maker Name Role Phone Kathryn Adhikari APRN, LYNDSAY Primary Care P rovider Dami Yuen MD Unavailable Allergies Active Allergy Reactions Criticality Noted Date Comments Medroxyprogesterone Hives 05/08/2017 Diphenhydramine Hives High 04/30/2022 hives Medications omeprazole (PriLOSEC) 20 MG CAPSULE DELAYED RELEASEIndication s:Gastroesophagea l reflux disease without esophagitis Take 1 Capsule by mouth daily. 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 90 Tablet 1 12/16/19 25 Active dexamethasone (DECADRON) 1 MG TabletIndications :Class 3 severe obesity due to excess calories with body mass index (BMI) of 40.0 to 44.9 in adult, unspecified whether serious comorbidity present,Other fatigue Take dexamethasone 1 mg at 11:00 pm and check morning cortisol as directed 1 Tablet 12/16/19 25 Active Tirzepatide-Weigh t Management (Zepbound) 2.5 MG/0.5ML SolutionIndicatio ns:Class 3 severe obesity due to excess calories with serious comorbidity and body mass index (BMI) of 40.0 to 44.9 in adult,PCOS (polycystic ovarian syndrome),Moderat e binge-eating disorder,Mild obstructive sleep apnea 2.5 mg by Subcutaneous route once a week. 2 mL 10/18/19 025 Discontin ued(Med List Clean Up) levothyroxine (SYNTHROID) 100 MCG TabletIndications :Acquired hypothyroidism TAKE 1 TABLET BY MOUTH DAILY 90 Tablet 1 11/15/19 25 025 Discontin ued(Dose adjustmen t) Active Problems Problem Noted Date Diagnosed Date Adjustment disorder with mixed anxiety and depre ssed mood 08/07/2017 PCOS (polycystic ovarian syndrome) 07/29/2017 Encounters Date Type Department Care Team Description 12/15/2024 2:45 PM CDT Office Visit [facility] Endocrinology [facility] [address] [place] [address] Kathryn Adhikari APRN, CNP Tae, Wonil, MD 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 (Primary Dx); Medication dose changed; Class 3 severe obesity due to excess calories with body mass index (BMI) of 40.0 to 44.9 in adult, unspecified whether serious comorbidity present; Other fatigue; PCOS (polycystic ovarian syndrome) Discharge Disposition: Discharged to home or Selfcare 12/15/2024 Travel 12/12/2024 Telephone [facility] [address] [place] [phone] Kathryn Adhikari APRN, CNP Referral 12/10/2024 6:17 PM CDT - 12/10/2024 7:34 PM CDT Emergency [facility] Emergency [address] [place] [phone] Ksenia Louie APRN, CNP Acute pain of left knee Discharge Disposition: Discharged to home or Selfcare 12/10/2024 Travel 11/13/2024 Refill [facility] [address] [place] [address] Kathryn Adhikari APRN, PHYSICIAN LOCUMS URGENT CARE Medication Refill 11/02/2024 Telephone [facility] [address] [place] [phone] Kathryn Adhikari APRN, PHYSICIAN LOCUMS URGENT CARE Prior Authorization (Tirzepatide-Weight Management (Zepbound) 2.5 MG/0.5ML Solution) 10/12/2024 Nurse Triage [facility] [address] [place] [address] Kathryn Adhikari APRN, PHYSICIAN LOCUMS URGENT CARE Altered Mental Status 10/06/2024 [facility]phone [facility] [address] [place] [phone] Kathryn Adhikari APRN, PHYSICIAN LOCUMS URGENT CARE Prior Authorization (tirzepatide-weight management (Zepbound) 2.5 MG/0.5ML Solution Auto-injector) from Last 3 Months Immunizations Immunization Administration Dates Next Due Covid-19, Mrna, Lnp-s, PF, 1 00 mcg/0.5 mL Dose (Moderna) 07/19/2020,06/18/2020 DTAP VACCINE 05/20/2019, 9,02/13/1997,1996,1996 Hepatitis B Vaccine 02/13/1997 Hepatitis B Vaccine, Pediatric/adolescent 02/13/1997,1996,1996 Hib Vaccine,unspecified Formulation 03/24,05/11/1997,1996,1996 MMR Vaccine 04/11/1998 OPV 04/11/1998,1996,1996 Polio Vaccine,unspecified Formulation 04/11/1998 TDAP Vaccine 11/24/2023,05/20/2019 Family History Medical History Relation Name Comments No Known Problems Brother 1 No Known Problems Brother 2 No Known Problems Father Cancer Maternal Grandfather Depression Mother Cancer Paternal Grandfather Heart Attack Paternal Grandfather No Known Problems Sister Relation Name Status Comments Brother 1 Alive Brother 2 Alive Father Alive Maternal Grandfather (Age 63) ca ncer Mother Alive Paternal Grandfather Alive Sister Alive Social History Tobacco Use Types Packs/Day Years Used Date Smoking Tobacco: Former Smokeless Tobacco: Never Tobacco Cessation:Counseling Given: No Alcohol Use Standard Drinks/Week Comments Yes 1 [...] on file Legal Sex Female 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 Gender Identity Not on file Sexual Orientation Not on file Last Filed Vital Signs Vital Sign Reading Time Taken Comments Blood Pressure 124/76 12/15/2024 2:36 PM CDT Pulse 76 12/15/2024 2:36 PM CDT Temperature 36.4 C (97.5 F) 12/15/2024 2:36 PM CDT Respiratory Rate 22 12/15/2024 2:36 PM CDT Oxygen Saturation 98% 12/15/2024 2:36 PM CDT Inhaled Oxygen Concentration - - Weight 111.9 kg (246 lb 9.6 oz) 12/15/2024 2:36 PM CDT Height 165.1 cm (5' 5) 12/10/2024 6:15 PM CDT Body Mass Index 41.04 12/10/2024 6:15 PM CDT Plan of Treatment Upcoming Encounters Date Type Department Care Team (Late st Contact Info) Description 03/31/2025 2:15 PM AIR BATTLE MANAGER [facility] [address] [place] [address] Dami Yuen MD [address] [address] Health Maintenance Due Date Last Done Comments Human Papillomavirus (HPV) Immunization (1 - 3-dose SCDM series) 06/27/2023 Influenza Immunization (#1) 2024 SARS-COV-2 Immunization (3 - season) 2024 07/19/2020, 06/18/2020 Pap Smear 08/17/2025 08/17/2020, 05/08/2017 DTaP/Tdap/Td Immunization (8 - Td or Tdap) 11/23/2033 11/24/2023, 05/20/2019, 05/20/2019, Additional history exists Respiratory Syncytial Virus (RSV) Immunization (Adult) (1 - 1-dose 75+ series) 06/27/2071 Hepatitis B Immunization Completed 997, 02/13/1997, 1996, Additional history exists Hepatitis C Virus (HCV) Screening Completed 08/25/2022 Meningococcal Immunization (ACWY) Aged Out No longer eligible based on patient's age to complete this topic Pneumococcal Immunization Combined Aged Out No longer eligible based on patient's age to complete this topic Rotavirus Immunization Aged Out No lo nger eligible based on patient's age to complete this topic Procedures Procedure Name Priority Date/Time Associated Diagnosis Comments XR KNEE 1 OR 2 VIEWS LEFT STAT 12/10/2024 6:38 PM CDT NUTRITION CONSULT 11/04/2024 12: 00 AM CDT NUTRITION CONSULT 11/03/2024 12: 00 AM CDT HEPATITIS C ANTIBODY Routine 08/25/2022 7:54 AM CDT Preventative health care PATHOLOGY CYTOLOGY CANDLE WICKER Routine 08/17/2020 3:24 PM CDT Well female exam with routine gynecological exam PCO (polycystic ovaries) Overweight from Last 3 Months or Most Recently Relevant to Health Maintenance Results * XR KNEE 1 OR 2 VIEWS LEFT (12/10/2024 6:38 PM CDT) Anatomical Region Laterality Modality LOWER EXTREMITY, knee Left Digital Ra diography 12/10/2024 6:38 PM CDT Impressions 12/10/2024 6:45 PM CDT IMPRESSION: Unremarkable radiographic appearance of the left knee with no acute fractures identified. Narrative 12/10/2024 6:45 PM CDT XR KNEE 1 OR 2 VIEWS LEFT : 12/10/2024 6:38 PM DICTATING PHYSICIAN: ALESSANDRO REEVES [facility]. HISTORY: As below. 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 FINDINGS: 2 views of the left knee were obtained. There are no acute fractures or dislocations. Joint spaces are maintained. There are no osseous erosive or destructive changes. There is no significant joint effusion or radiopaque foreign bodies. Procedure Note Alessandro Reeves MD - 12/10/2024 XR KNEE 1 OR 2 VIEWS LEFT : 12/10/2024 6:38 PM DICTATING PHYSICIAN: ALESSANDRO REEVES [facility]. HISTORY: As below. ADDITIONAL TECHNOLOGIST HISTORY: patient fell down stairs, heard a popPTA, has pain to entire knee and LOM COMPARISON: None. FINDINGS: 2 views of the left knee were obtained. There are no acute fractures ordislocations. Joint spaces are maintained. There are no osseous erosive ordestructive changes. There is no significant joint effusion or radiopaqueforeign bodies. IMPRESSION: Unremarkable radiographic appearance of the left knee with no acutefractures identified. Ksenia Louie APRN, CNP IMG DIAGNOSTIC ORD ERABLES Final Result * NUTRITION CONSULT (11/04/2024 12:00 AM CDT) Only the most recent of2 resultswithin the time period is included. 11/04/2024 us Provider Scan GENERIC SCAN ORDERS CONSULT Marnie hammonds Result SCAN * HEPATITIS C ANTIBODY (08/25/2022 7:54 AM CDT) hepatitis C antibody 0.08 <1 S/CO [facility] [id number] B 08/25/2022 9:07 PM CDT [facility] Comment: Signal/Cutoff ratio < 0.79 is Nondetected Signal/Cutoff ratio 0.80-0.99 is Grayzone Signal/Cutoff ratio > 0.99 is Detected Supplemental assays are recommended if signal/cutoff ratio is >/=1.00. Signal/cutoff ratio result >/= 5.00 is 97% predictive of positivity for recombinant immunoblot assay (RIBA) and will be reported to the [place] Department of Public Health as required. Blood Venipuncture / Unknown 08/25/2022 7:54 AM CDT 08/25/2022 7:54 AM CDT us Kathryn Adhikari APRN, CNP CHEMISTRY ORDER AGGIE Final Result [facility] [address] [place] [address], [place] * PATHOLOGY CYTOLOGY CANDLE WICKER (08/17/2020 3:24 PM CDT) SPECIMEN ADEQUACY Satisfactory for evaluation. Endocervical/transf ormation zone component is present. Partially obscuring inflammation is noted. 08/30/2020 2:26 PM CDT [facility] DESCRIPTIVE DIAGNOSIS NEGATIVE FOR INTRAEPITHELIAL LESIONS OR MALIGNANCY. 08/30/2020 2:26 PM CDT [facility] at 1426 CDT HPV Reflex if ASCUS? Yes 08/30/2020 2:26 PM CDT [facility] Automated Examination Analysis of this sample has been assisted by an automated imaging and review system ([employer] Imaging System, [employer], [place], [place]). This case is further evaluated and finalized by a wedger and gluer and/or pathologist. 08/30/2020 2:26 PM CDT [facility] Disclaimer The PAP smear is a screening test designed to detect cancerous or precancerous cells of the uterine cervix. It is one of the best means available for detection of cervical cancer but still carries an inherent false-negative rate. The consequences of a false-negative PAP result can be minimized by adhering to current screening guidelines. The following are general guidelines recommended by the ACS, ASCP, ASCCP, and ACOG: PAP testing is recommended every three years for women 21-29, Co-Testing, a PAP test in conjunction with an HPV (Human Papillomavirus) test for women ages 30-65, and no PAP or HPV testing for women under the age of 21 or older than 65 unless clinically indicated. 08/30/2020 2:26 PM CDT [facility] Other CERVIX UTERI STRUCTURE / Unknown Non-Phlebotomy Collection / Unknown 08/17/2020 3:24 PM CDT 08/17/2020 3:24 PM CDT us Xu Ramos MD PATHOLOGY/CYTOLOGY ORDERABLES Final Result [facility] [address] [place] [address], [place] from Last 3 Months or Most Recently Relevant to Health Maintenance Insurance MEDICAID [place] [facility] Care Teams Awning Maker Relationship Specialty Start Date End Date Kathryn Adhikari, [employer], PHYSICIAN [facility]MS [facility] CARE [address] [place] [address] PCP - General Advanced Practice Nurse 01/01/18 Dami Yuen MD [address] [address] Consulting Physician Endocrinology 12/15/24
--- OUTSIDE RECORDS SUMMARY | 2024-12-23 10:24 | XMS_ITS ---
Author Organization [facility] Address [address] [place] [address] Phone Care Team Providers Care Machine Stemmer Name Role Phone Kathryn Adhikari APRN, LYNDSAY Primary Care P rovider Dami Yuen MD Unavailable [facility] Status:Enrolled (Active) Start date:04/20/2024 Enrollment date:04/20/2024 Related social drivers of health:Intimate Partner Violence, Social Connections, Alcohol Use, Tobacco Use, Financial Resource Strain,Stress, Physical Activity, Food Insecurity, Transportation Needs, Housing Stability, Utilities Continued Care and Services Coordination
== END 2024-12-23 10:10 | disposition home or self-care (01) ==
PROVIDERS: PCP Family Medicine
DX: S89.90XA Unspecified injury of unspecified lower leg, initial encounter (principal); X58.XXXA Exposure to other specified factors, initial encounter; M17.12 Unilateral primary osteoarthritis, left knee; M25.462 Effusion, left knee
CPT/HCPCS: 73721